=== PATIENT | male | born 1935 | race Caucasian/White ===

== ENCOUNTER 2018-02-26 12:25 | Emergency (ER) | payer MEDICARE, BC, OTHER ==
[~2018-02-26] VITALS: Ht 182.9 cm; Wt 80.0 kg
[~2018-02-26 12:25] MED LIST: CYAN-19 PO; DABI75CA3 PO; DIGO-16 PO; DOCU-28 PO; GLYB5TAB7 PO; METF500T4 PO; METO25TA6 PO; SILD100T PO; SIMV40TA4 PO; [UNRECOGNIZED DRUG - CODE] PO
[2018-02-26 14:05] VITALS: BP 109/64
== END 2018-02-26 14:07 | disposition home or self-care (01) ==
LOC: ER 12:25
DX: S00.83XA Contusion of other part of head, initial encounter (principal); E11.9 Type 2 diabetes mellitus without complications; Z79.84 Long term (current) use of oral hypoglycemic drugs; W18.30XA Fall on same level, unspecified, initial encounter; Y93.89 Activity, other specified; Y92.89 Other specified places as the place of occurrence of the external cause; Y99.8 Other external cause status
CPT/HCPCS: 70450; 99284

== ENCOUNTER 2018-04-29 08:28 | Outpatient (CLI) | payer MEDICARE, BC, OTHER ==
[~2018-04-29] VITALS: Ht 182.9 cm; Wt 91.0 kg
[2018-04-29] VITALS (9 sets, daily range): BP systolic 119–134; BP diastolic 51–82
[~2018-04-29 08:28] MED LIST changes: -METF500T4 PO; +METF500T6 PO
[2018-04-29] MEDS ORDERED: aminophylline 250mg/10ml inj. IV PRN ×2 (09:25→09:35)
[2018-04-29] MEDS ORDERED: normal saline 500ml IV soln 500 ML IV ONE (09:25)
[2018-04-29] MEDS ORDERED: metoprolol tartrate 1mg/ml inj IV PRN ×2 (09:25→09:35)
[2018-04-29] MEDS ORDERED: regadenoson 0.4mg/5ml syringe IV ONE ×3 (09:25→10:01)
[2018-04-29] MEDS ORDERED: GLIM1TAB46 PO (09:28)
[2018-04-29] MEDS ORDERED: CAFFEINE CITRATE 60 MG/3 ML injection vial IV ONE (10:01)
== END 2018-04-29 23:59 | disposition home or self-care (01) ==
LOC: RAD 08:28
PROVIDERS: ATTEND Internal Medicine Interventional Cardiology
DX: Z01.818 Encounter for other preprocedural examination (principal); I48.91 Unspecified atrial fibrillation; Z87.891 Personal history of nicotine dependence
CPT/HCPCS: 78452; A9500; J7030

== ENCOUNTER 2021-04-07 11:16 | Emergency (ER) | payer OTHER, MEDICARE, BC ==
[~2021-04-07] VITALS: Ht 182.9 cm; Wt 100.5 kg
[~2021-04-07 11:16] MED LIST changes: -CYAN-19 PO; +CYAN-51 PO; +GLIM1TAB6 PO; -GLYB5TAB7 PO; +LOP25T PO; +METF-950 PO; -METF500T6 PO; -METO25TA6 PO; +SIMV-45 PO; -SIMV40TA4 PO
[2021-04-07 11:31] VITALS: BP 117/66
== END 2021-04-07 12:30 | disposition home or self-care (01) ==
LOC: ER 11:18
DX: Z02.89 Encounter for other administrative examinations (principal); E11.9 Type 2 diabetes mellitus without complications; M19.90 Unspecified osteoarthritis, unspecified site; Z86.73 Personal history of transient ischemic attack (TIA), and cerebral infarction without residual deficits; Z79.899 Other long term (current) drug therapy
CPT/HCPCS: 99283